=== PATIENT | male | born 1950 | race Hispanic/Latino ===

== ENCOUNTER 2024-05-24 06:47 | Inpatient (IN) | payer OTHER ==
[2024-05-22 10:18] VITALS: BP 118/73; PULSE 66; RESP 18; TEMP 97.8
[2024-05-22 10:18] LABS: BASOPHILS # (AUTO) 0.03 K/uL (0.00-0.20); BASOPHILS % (AUTO) 0.4 % (0.0-5.0); EOSINOPHILS # (AUTO) 0.15 K/uL (0.00-0.70); EOSINOPHILS % (AUTO) 2.2 % (0.0-8.0); HEMATOCRIT 44.3 % (42-54); IMMATURE GRANULOCYTE ABSOLUTE 0.04 K/uL (0-1); LYMPHOCYTES # (AUTO) 1.7 K/uL (1.0-4.8); LYMPHOCYTES % (AUTO) 25.3 % (21.0-51.0); MEAN CORPUSCULAR HEMOGLOBIN 30.9 pg (27.0-33.0); MEAN CORPUSCULAR HGB CONC 33.4 g/dL (32.0-36.0); MEAN CORPUSCULAR VOLUME 92.5 fL (79-99); MONOCYTES # (AUTO) 0.5 K/uL (0.1-1.0); MONOCYTES % (AUTO) 7.1 % (3.0-13.0); NEUTROPHILS # (AUTO) 4.4 K/uL (1.8-7.7); NEUTROPHILS % (AUTO) 64.4 % (40.0-77.0); PLATELET COUNT (AUTO) 232 K/uL (130-400); RED BLOOD CELL COUNT(AUTO) 4.79 MIL/uL (4.50-6.20); RED CELL DISTRIBUTION WIDTH 12.8 % (11.0-15.5); WHITE BLOOD COUNT (AUTO) 6.9 K/uL (4.8-10.8)
[2024-05-22 10:20] LABS: APPEARANCE,URINE CLEAR (CLEAR); BILIRUBIN,URINE NEGATIVE (NEGATIVE); COLOR,URINE LIGHT-YELLOW (YELLOW); GLUCOSE, URINE (UA) NEGATIVE (NEGATIVE); KETONES,URINE NEGATIVE (NEGATIVE); LEUKOCYTE ESTERASE ,URINE 75 Leu/uL (NEGATIVE); NITRATE,URINE NEGATIVE (NEGATIVE); OCCULT BLOOD,URINE NEGATIVE (NEGATIVE); PROTEIN,URINE NEGATIVE (NEGATIVE); UROBILINOGEN,URINE 0.2 mg/dL (0.2-1.0)
[2024-05-22 10:28] LABS: ADD UA MICROSCOPIC YES
[2024-05-22 10:31] LABS: INR 1.01 (0.85-1.15); PROTHROMBIN TIME 10.9 SEC (9.6-11.6)
[2024-05-22 10:31] LABS: CREATININE 1.1 mg/dL (0.5-1.3); POTASSIUM 4.5 mmol/L (3.5-5.1)
[2024-05-22 10:32] LABS: PARTIAL THROMBOPLASTIN TIME 33.3 SEC (26.3-35.5)
[2024-05-22 10:35] LABS: MUCUS,URINE RARE LPF (None Seen)
[2024-05-22 11:00] LABS: B-TYPE NATRIURETIC PEPTIDE 142 pg/mL (0-100)
[~2024-05-24] VITALS: Ht 167.6 cm; Wt 90.4 kg
[2024-05-24] VITALS (16 sets, daily range): BP systolic 107–132; BP diastolic 63–88; PULSE 65–84; RESP 10–20; TEMP 97.1–98.6; O2SAT 96
[~2024-05-24 06:47] MED LIST: AEC81 PO; BISA-151 PO; LACTOBACILLUS ACIDOPHILUS PO; LISI20TA24 PO; METF-444 PO; RANO10005 PO; SEMA1PEN3 SQ
[2024-05-24] MEDS: 0.9%NACL 1000ML 1,000 ML IV ONE (08:19)
[2024-05-24] MEDS ORDERED: LIDOCAINE HCL 400MG/20ML VIAL ONE (08:47)
[2024-05-24] MEDS ORDERED: IOHEXOL 350 MG/ML 100ML INFUS..BTL IV ONE (08:47)
[2024-05-24] MEDS ORDERED: NITROGLYCERIN 50MG VIAL ONE (08:48)
[2024-05-24] MEDS ORDERED: HEParin-NS 1,000 UNIT/500 ML 1,000 ML IV ONE (08:48)
[2024-05-24] MEDS ORDERED: MIDAZOLAM HCL 1 MG/ML 2ML VIAL ONE (09:17)
[2024-05-24] MEDS ORDERED: FENTanyl CITRate PF 50 MCG/1 ML 2ML VIAL ONE (09:17)
[2024-05-24] MEDS ORDERED: BIVALIRUDIN 250 MG/VIAL IV ONE (09:20)
[2024-05-24] MEDS ORDERED: IOHEXOL-350 50ML VIAL IV ONE (10:17)
[2024-05-24] MEDS: 0.9%NACL 1000ML 1,000 ML IV SCH (11:00)
[2024-05-24] MEDS ORDERED: DEXTROSE 50%-WATER 50 ML DISP.SYRIN IV PRN ×2 (11:00→22:00)
[2024-05-24] MEDS ORDERED: GLUCAGON 1MG KIT 1 MG ML IM PRN ×2 (11:00→22:00)
[2024-05-24] MEDS ORDERED: NITROGLYCERIN 0.4 MG SL TAB SL PRN (11:00)
[2024-05-24] MEDS ORDERED: metoPROLOL tartRATE 1 MG/ML 5ML VIAL IV PRN (11:00)
[2024-05-24] MEDS ORDERED: furoSEMIDE 20MG VIAL IVP ONE (11:57)
[2024-05-24 13:27] LABS: ABG BASE EXCESS -0.1 mmol/L (-2.0-3.0); ABG HCO3 24.6 mmol/L (21.0-28.0); ABG OXYGEN SATURATION 94.8 % (94.0-98.0); ABG PCO2 40 mmHg (35-48); ABG PH 7.406 (7.350-7.450); DEVICE COMMENT RR DAY PT; PO2, ARTERIAL BG 73.1 mmHg (83.0-108.0); VENT MODE, BG RA (ROOM AIR)
[2024-05-24] MEDS: INSULIN humuLIN R 100 UNIT/ML 3ML SQ SCH (16:30)
[2024-05-24] MEDS ORDERED: ceFAZolin SODIUM 2 GM VIAL IVPB SCH (20:30)
[2024-05-24] MEDS ORDERED: POTASSIUM CHLORIDE 20MEQ/100ML 100 ML IV PRN (22:00)
[2024-05-24] MEDS ORDERED: ONDANSETRON 4MG INJ IVP PRN (22:00)
[2024-05-24] MEDS ORDERED: MAGNESIUM 2GM PREMIX 50ML 50 ML IV PRN (22:00)
[2024-05-24] MEDS ORDERED: acetaMINOPHEN 650 MG SUPPOSITORY RC PRN (22:00)
[2024-05-24] MEDS ORDERED: acetaMINOPHEN 325 MG TAB PO PRN (22:00)
[2024-05-24] MEDS ORDERED: doCUSate SODIUM 100 MG CAP PO PRN (22:00)
[2024-05-24] MEDS ORDERED: hydrALAZine 20MG/ML VIAL IV PRN (22:00)
[2024-05-24 23:12] LABS: SARS-CoV-2, RNA, NAAT NEGATIVE SARS CoV-2 (NEGATIVE)
[2024-05-25] VITALS (28 sets, daily range): BP systolic 111–182; BP diastolic 44–120; PULSE 61–124; RESP 13–18; TEMP 97–98.5; O2SAT 96–100
[2024-05-25 00:01] LABS: INFLUENZA TYPE A Negative For Type A (NEGATIVE); INFLUENZA TYPE B Negative For Type B (NEGATIVE)
[2024-05-25 03:33] LABS: HEMATOCRIT 42.1 % (42-54); MEAN CORPUSCULAR HEMOGLOBIN 31.2 pg (27.0-33.0); MEAN CORPUSCULAR HGB CONC 33.7 g/dL (32.0-36.0); MEAN CORPUSCULAR VOLUME 92.5 fL (79-99); RED BLOOD CELL COUNT(AUTO) 4.55 MIL/uL (4.50-6.20); RED CELL DISTRIBUTION WIDTH 13.1 % (11.0-15.5); WHITE BLOOD COUNT (AUTO) 7.5 K/uL (4.8-10.8)
[2024-05-25 03:43] LABS: CREATININE 1.4 mg/dL (0.5-1.3); POTASSIUM 3.8 mmol/L (3.5-5.1)
[2024-05-25 03:45] LABS: INR 0.99 (0.85-1.15); PROTHROMBIN TIME 10.7 SEC (9.6-11.6)
[2024-05-25 03:47] LABS: PARTIAL THROMBOPLASTIN TIME 29.9 SEC (26.3-35.5)
[2024-05-25 03:55] LABS: ALBUMIN 3.2 g/dL (3.5-5.0); BILIRUBIN,TOTAL 0.4 mg/dL (0.2-1.0); THYROID STIMULATING HORMONE 3.85 uIU/mL (0.36-3.74); TOTAL PROTEIN, SERUM 6.6 g/dL (6.0-8.3)
[2024-05-25 04:01] LABS: HEMOGLOBIN A1C 6.7 % (4.0-6.0)
[2024-05-25] MEDS: POTASSIUM CHLORIDE 10MEQ/100ML 100 ML IV PRN (04:29)
[2024-05-25] MEDS: POTASSIUM CHLORIDE 10MEQ/100ML 100 ML IV ONE (04:29)
[2024-05-25] MEDS: metoPROLOL tartRATE 25 MG TAB PO ONE (08:27)
[2024-05-25] MEDS ORDERED: aminoCAProic ACID 5,000MG VIAL 15,000 MG in 0.9% NACL 500ML IV.SOLN 420 ML IV PRN (08:30)
[2024-05-25] MEDS ORDERED: EPINEPHrine PF 1MG (1:1,000) 10 MG in 0.9% NACL 250ML 240 ML IV PRN (08:30)
[2024-05-25] MEDS: LACTATED RINGERS 1000ML 1,000 ML IV SCH (10:10)
[2024-05-25] MEDS ORDERED: NITROGLYCERIN 50MG/D5W 250ML 1 BOT ONE (11:38)
[2024-05-25] MEDS ORDERED: LIDOCAINE 2G/250ML 250 ML IV ONE (11:39)
[2024-05-25] MEDS ORDERED: HEParin-NS 1,000 UNIT/500 ML 500 ML IV ONE (12:23)
[2024-05-25] MEDS ORDERED: ceFAZolin SODIUM 1 GM VIAL ONE (12:23)
[2024-05-25] MEDS ORDERED: PAPAVERINE HCL 30 MG/ML 2ML VIAL ONE (12:24)
[2024-05-25] MEDS ORDERED: proPOFol 10 MG/ML 20ML VIAL IV ONE (12:31)
[2024-05-25] MEDS ORDERED: SODIUM BICARB 50MEQ 50ML VIAL 200 ML ONE (12:31)
[2024-05-25] MEDS ORDERED: LIDOCAINE PF 100MG/5ML (2%) SYRINGE 5ML ONE ×2 (12:31→13:47)
[2024-05-25] MEDS ORDERED: FENTanyl CITRate PF 50 MCG/1 ML 20ML VIAL IJ ONE (12:31)
[2024-05-25] MEDS ORDERED: NOREPINEPHRINE BITARTRATE 1 MG/1 ML ML IV ONE (12:31)
[2024-05-25] MEDS ORDERED: EPINEPHrine PF 1MG (1:1,000) 1 MG/ML AMP ONE (12:31)
[2024-05-25] MEDS ORDERED: aminoCAProic ACID 5,000MG VIAL ONE (12:31)
[2024-05-25] MEDS ORDERED: PROTAMINE SULFATE 10 MG/ML 25ML VIAL IV ONE (12:31)
[2024-05-25] MEDS ORDERED: HEParin 10,000 UNIT/10ML (1,000 UNIT/ML) VIAL ONE (12:31)
[2024-05-25] MEDS ORDERED: MIDAZOLAM HCL 1 MG/ML 2ML VIAL ONE (12:32)
[2024-05-25] MEDS ORDERED: rocuRONium bROMide 10MG/1ML 5ML VL ONE (12:32)
[2024-05-25] MEDS: ceFAZolin SODIUM 2 GM VIAL IVPB ONE ×2 (12:50)
[2024-05-25 13:16] LABS: ABG BASE EXCESS -2.6 mmol/L (-2.0-3.0); ABG HCO3 21.9 mmol/L (21.0-28.0); ABG OXYGEN SATURATION 99.6 % (94.0-98.0); ABG PCO2 37 mmHg (35-48); ABG PH 7.385 (7.350-7.450); CARBON MONOXIDE 0.3 % (0.5-1.5); DEVICE COMMENT 1; HHb 0.4; PO2, ARTERIAL BG 330.5 mmHg (83.0-108.0)
[2024-05-25] MEDS ORDERED: VASOpressin 20 UNITS/ML 1ML VIAL ONE (13:28)
[2024-05-25] MEDS ORDERED: AMIOdarone 150MG VIAL ONE ×2 (13:28→16:07)
[2024-05-25] MEDS ORDERED: 0.9%NACL 10ML VIAL IVP PRN (14:00)
[2024-05-25] MEDS ORDERED: acetaMINOPHEN 650 MG SUPPOSITORY RC PRN (14:00)
[2024-05-25] MEDS ORDERED: GLUCAGON 1MG KIT 1 MG ML IM PRN (14:00)
[2024-05-25] MEDS ORDERED: MAGNESIUM HYDROXIDE 30 ML/UDCUP PO PRN (14:00)
[2024-05-25] MEDS ORDERED: proPOFol 1000 MG/100 ML 100 ML IV PRN (14:00)
[2024-05-25] MEDS ORDERED: DEXTROSE 50%-WATER 50 ML DISP.SYRIN IV PRN (14:00)
[2024-05-25] MEDS ORDERED: LACTULOSE 20 GM/30 ML UDCUP PO PRN (14:00)
[2024-05-25] MEDS ORDERED: aminoCAProic ACID 5,000MG VIAL 15,000 MG in 0.9% NACL 250ML 250 ML IV SCH (14:00)
[2024-05-25] MEDS ORDERED: NOREPINEPHRINE BITARTRATE 8 MG in DEXTROSE 5%-WATER 250 ML IV PRN (14:00)
[2024-05-25] MEDS ORDERED: NITROGLYCERIN 50MG/D5W 250ML 250 BOT IV SCH (14:00)
[2024-05-25] MEDS ORDERED: morPHINE 2 MG SYG IV PRN ×2 (14:00)
[2024-05-25] MEDS ORDERED: SODIUM BICARB 50MEQ 50ML VIAL IV PRN (14:00)
[2024-05-25] MEDS ORDERED: traMADol HCL 50 MG TABLET PO PRN (14:00)
[2024-05-25] MEDS ORDERED: dexmedeTOMIDine 400MCG/NS100ML IV SCH (14:00)
[2024-05-25] MEDS ORDERED: 0.9% NACL 500ML IV.SOLN 500 ML IV SCH (14:00)
[2024-05-25] MEDS ORDERED: ALBUMIN (HUMAN) 5% 250 ML IV PRN (14:00)
[2024-05-25] MEDS ORDERED: acetaMINOPHEN 325 MG TAB PO PRN (14:00)
[2024-05-25 14:11] LABS: ABG HCO3 23.7 mmol/L (21.0-28.0); ABG OXYGEN SATURATION 99.4 % (94.0-98.0); ABG PCO2 40 mmHg (35-48); ABG PH 7.393 (7.350-7.450); CARBON MONOXIDE 0 % (0.5-1.5); DEVICE COMMENT 2; HHb 0.6; PO2, ARTERIAL BG 368.5 mmHg (83.0-108.0)
[2024-05-25] MEDS ORDERED: COMPOUND IV MISC 1 EACH IVSOLN MISC PRN (14:30)
[2024-05-25] MEDS ORDERED: COMPOUND IV REFRIGERATED 1 EACH IVSOLN MISC PRN (14:30)
[2024-05-25 14:42] LABS: ABG OXYGEN SATURATION 98.8 % (94.0-98.0); ABG PCO2 39 mmHg (35-48); ABG PH 7.368 (7.350-7.450); CARBON MONOXIDE 0.1 % (0.5-1.5); DEVICE COMMENT 3; HHb 1.2; PO2, ARTERIAL BG 147.5 mmHg (83.0-108.0)
[2024-05-25 15:13] LABS: ABG BASE EXCESS 0.8 mmol/L (-2.0-3.0); ABG HCO3 25.2 mmol/L (21.0-28.0); ABG OXYGEN SATURATION 98.8 % (94.0-98.0); ABG PCO2 40 mmHg (35-48); ABG PH 7.422 (7.350-7.450); CARBON MONOXIDE 0 % (0.5-1.5); DEVICE COMMENT 4; HHb 1.2; PO2, ARTERIAL BG 146.9 mmHg (83.0-108.0); TEMPERATURE, CELSIUS BG 35.5 CELSIUS (35.5-37.0)
[2024-05-25 15:50] LABS: ABG BASE EXCESS -4.3 mmol/L (-2.0-3.0); ABG HCO3 21.6 mmol/L (21.0-28.0); ABG OXYGEN SATURATION 97.1 % (94.0-98.0); ABG PCO2 43 mmHg (35-48); CARBON MONOXIDE 0.3 % (0.5-1.5); DEVICE COMMENT 5; HHb 2.9; PO2, ARTERIAL BG 103.8 mmHg (83.0-108.0); TEMPERATURE, CELSIUS BG 35.2 CELSIUS (35.5-37.0)
[2024-05-25] MEDS ORDERED: ALBUTEROL INHALER 90MCG/INH IH ONE (15:54)
[2024-05-25] MEDS ORDERED: AMIOdarone 900MG VIAL 150 MG in DEXTROSE 5%-WATER 100 ML IV SCH (16:30)
[2024-05-25] MEDS ORDERED: AMIOdarone 900MG VIAL 360 MG in DEXTROSE 5%-WATER 200 ML IV SCH (16:30)
[2024-05-25] MEDS ORDERED: AMIOdarone 150MG VIAL 150 MG in DEXTROSE 5%-WATER 100 ML IV SCH (16:30)
[2024-05-25] MEDS: SODIUM BICARB 50MEQ 50ML VIAL 25 MEQ in DEXTROSE 5%-WATER 1,000 ML IV SCH (18:54)
[2024-05-25] MEDS: POTASSIUM CHLORIDE 20MEQ/100ML 100 ML IV PRN (18:55)
[2024-05-25 19:09] LABS: CREATININE 1.6 mg/dL (0.5-1.3); MAGNESIUM 1.5 mg/dL (1.80-2.40); PHOSPHORUS 3.7 mg/dL (2.5-4.9)
[2024-05-25 19:11] LABS: INR 1.23 (0.85-1.15); PROTHROMBIN TIME 13.1 SEC (9.6-11.6)
[2024-05-25 19:13] LABS: PARTIAL THROMBOPLASTIN TIME 27.1 SEC (26.3-35.5)
[2024-05-25 19:14] LABS: HEMATOCRIT 38.6 % (42-54); MEAN CORPUSCULAR HEMOGLOBIN 31.4 pg (27.0-33.0); MEAN CORPUSCULAR HGB CONC 33.2 g/dL (32.0-36.0); MEAN CORPUSCULAR VOLUME 94.8 fL (79-99); PLATELET COUNT (AUTO) 365 K/uL (130-400); RED BLOOD CELL COUNT(AUTO) 4.07 MIL/uL (4.50-6.20); RED CELL DISTRIBUTION WIDTH 13.1 % (11.0-15.5)
[2024-05-25 19:17] LABS: POTASSIUM 2.7 mmol/L (3.5-5.1)
[2024-05-25 19:20] LABS: WHITE BLOOD COUNT (AUTO) 34.5 K/uL (4.8-10.8)
[2024-05-25] MEDS: AMIODARONE 360MG/200ML D5W(1MG/MIN) IV SCH (19:23)
[2024-05-25] MEDS: 0.9%NACL 1000ML 1,000 ML IV SCH (19:24)
[2024-05-25] MEDS: ceFAZolin SODIUM 2 GM VIAL ONE (19:24)
[2024-05-25] MEDS: 0.9%NACL 1000ML 1,000 ML IV ONE (19:24)
[2024-05-25] MEDS: NOREPINEPHRIN 8MG/250ML NS 250 ML IV PRN (19:26)
[2024-05-25] MEDS: MAGNESIUM 2GM PREMIX 50ML 50 ML IV PRN (19:35)
[2024-05-25 20:02] LABS: BAND NEUTROPHILS % (MANUAL) 5 % (0-2); LYMPHOCYTES % (MANUAL) 18 % (22-44); MAN.DIFF COMMENT-IMPRESSION MANUAL DIFFERENTIAL; MONOCYTES % (MANUAL) 2 % (2-9); PLATELET MORPHOLOGY COMMENT ADEQUATE; SEGMENTED NEUTROPHILS % 75 % (40-70); TOTAL CELLS COUNTED 100; WBC MORPHOLOGY CONSISTENT W/DIFF
[2024-05-25] MEDS: NOREPINEPHRIN 8MG/250ML NS 250 ML IV ONE (20:14)
[2024-05-25] MEDS: atorVAStatin 40 MG TABLET PO SCH (20:16)
[2024-05-25] MEDS: FAMOTIDINE 20MG VIAL IV SCH (20:16)
[2024-05-25] MEDS: ASPIRIN 81MG CHEW TAB NG ONE (20:16)
[2024-05-25] MEDS: doCUSate SODIUM 100 MG CAP PO ONE (20:16)
[2024-05-25] MEDS: ceFAZolin SODIUM 2 GM VIAL IVPB SCH (20:16)
[2024-05-25] MEDS ORDERED: NOREPINEPHRIN 8MG/250ML NS 250 ML IV SCH (20:30)
[2024-05-25] MEDS: acetaMINOPHEN 1,000 MG/100 ML VIAL IV SCH (23:50)
[2024-05-26] VITALS (98 sets, daily range): BP systolic 90–184; BP diastolic 48–110; PULSE 77–118; RESP 9–47; TEMP 97.9–102.1; O2SAT 93–99
[2024-05-26] MEDS: AMIODARONE 540 MG/D5W 300ML (0.5MG/MIN) IV SCH (00:44)
[2024-05-26] MEDS: INSULIN REGULAR, HUMAN 3ML 100 UNIT in 0.9%NACL 100ML 99 ML IV SCH (00:55)
[2024-05-26 03:57] LABS: ABG BASE EXCESS 1.1 mmol/L (-2.0-3.0); ABG HCO3 24.6 mmol/L (21.0-28.0); ABG OXYGEN SATURATION 97.9 % (94.0-98.0); ABG PCO2 36 mmHg (35-48); ABG PH 7.458 (7.350-7.450); CARBON MONOXIDE 0.5 % (0.5-1.5); DEVICE COMMENT ALINE; HHb 2.1; PO2, ARTERIAL BG 113.1 mmHg (83.0-108.0); VENT MODE, BG SIMVPS10 (ROOM AIR)
[2024-05-26 03:57] LABS: ABG BASE EXCESS 1.6 mmol/L (-2.0-3.0); ABG HCO3 25.4 mmol/L (21.0-28.0); ABG OXYGEN SATURATION 98.1 % (94.0-98.0); ABG PCO2 37 mmHg (35-48); ABG PH 7.454 (7.350-7.450); CARBON MONOXIDE 0.8 % (0.5-1.5); HHb 1.9; PO2, ARTERIAL BG 124.1 mmHg (83.0-108.0); VENT MODE, BG SIMV, PS10 (ROOM AIR)
[2024-05-26 03:58] LABS: ABG BASE EXCESS 3.4 mmol/L (-2.0-3.0); ABG HCO3 27.2 mmol/L (21.0-28.0); ABG OXYGEN SATURATION 98.6 % (94.0-98.0); ABG PCO2 38 mmHg (35-48); ABG PH 7.469 (7.350-7.450); CARBON MONOXIDE 0.3 % (0.5-1.5); DEVICE COMMENT 5; HHb 1.4; TEMPERATURE, CELSIUS BG 35.2 CELSIUS (35.5-37.0)
[2024-05-26 03:58] LABS: ABG BASE EXCESS 0.6 mmol/L (-2.0-3.0); ABG HCO3 24.9 mmol/L (21.0-28.0); ABG OXYGEN SATURATION 96.9 % (94.0-98.0); ABG PCO2 39 mmHg (35-48); ABG PH 7.426 (7.350-7.450); CARBON MONOXIDE 0.7 % (0.5-1.5); HHb 3.1; PO2, ARTERIAL BG 94.2 mmHg (83.0-108.0); VENT MODE, BG SIMV,PS10 (ROOM AIR)
[2024-05-26 03:58] LABS: ABG BASE EXCESS 2.6 mmol/L (-2.0-3.0); ABG HCO3 27.7 mmol/L (21.0-28.0); ABG OXYGEN SATURATION 98.5 % (94.0-98.0); ABG PCO2 45 mmHg (35-48); ABG PH 7.412 (7.350-7.450); CARBON MONOXIDE 0.3 % (0.5-1.5); DEVICE COMMENT 9; HHb 1.5; PO2, ARTERIAL BG 147.1 mmHg (83.0-108.0); TEMPERATURE, CELSIUS BG 35.2 CELSIUS (35.5-37.0)
[2024-05-26 03:58] LABS: ABG BASE EXCESS -2.8 mmol/L (-2.0-3.0); ABG HCO3 21.5 mmol/L (21.0-28.0); ABG OXYGEN SATURATION 98.2 % (94.0-98.0); ABG PCO2 36 mmHg (35-48); ABG PH 7.392 (7.350-7.450); CARBON MONOXIDE 0.3 % (0.5-1.5); DEVICE COMMENT 8; HHb 1.8; TEMPERATURE, CELSIUS BG 35.2 CELSIUS (35.5-37.0)
[2024-05-26 03:58] LABS: ABG BASE EXCESS -4.3 mmol/L (-2.0-3.0); ABG HCO3 19.6 mmol/L (21.0-28.0); ABG OXYGEN SATURATION 98.4 % (94.0-98.0); ABG PCO2 33 mmHg (35-48); CARBON MONOXIDE 0.2 % (0.5-1.5); DEVICE COMMENT 8B; HHb 1.6; PO2, ARTERIAL BG 132.6 mmHg (83.0-108.0); TEMPERATURE, CELSIUS BG 35.1 CELSIUS (35.5-37.0)
[2024-05-26 03:58] LABS: ABG BASE EXCESS -3.6 mmol/L (-2.0-3.0); ABG HCO3 21.4 mmol/L (21.0-28.0); ABG OXYGEN SATURATION 91.2 % (94.0-98.0); ABG PCO2 39 mmHg (35-48); ABG PH 7.361 (7.350-7.450); CARBON MONOXIDE 0.1 % (0.5-1.5); DEVICE COMMENT 7; HHb 8.8; PO2, ARTERIAL BG 62.6 mmHg (83.0-108.0); TEMPERATURE, CELSIUS BG 35.1 CELSIUS (35.5-37.0)
[2024-05-26 03:58] LABS: ABG BASE EXCESS -0.9 mmol/L (-2.0-3.0); ABG HCO3 23.4 mmol/L (21.0-28.0); ABG OXYGEN SATURATION 97.9 % (94.0-98.0); ABG PCO2 38 mmHg (35-48); ABG PH 7.411 (7.350-7.450); CARBON MONOXIDE 0.6 % (0.5-1.5); HHb 2.1; PO2, ARTERIAL BG 123.2 mmHg (83.0-108.0); VENT MODE, BG SIMV,PS10 (ROOM AIR)
[2024-05-26 03:59] LABS: ABG OXYGEN SATURATION 98.2 % (94.0-98.0); ABG PCO2 42 mmHg (35-48); ABG PH 7.394 (7.350-7.450); CARBON MONOXIDE 0.4 % (0.5-1.5); HHb 1.8; PO2, ARTERIAL BG 141.2 mmHg (83.0-108.0); VENT MODE, BG SIMV,PS10 (ROOM AIR)
[2024-05-26 03:59] LABS: ABG BASE EXCESS 0.7 mmol/L (-2.0-3.0); ABG HCO3 24.9 mmol/L (21.0-28.0); ABG OXYGEN SATURATION 98.5 % (94.0-98.0); ABG PCO2 39 mmHg (35-48); ABG PH 7.428 (7.350-7.450); CARBON MONOXIDE 0.2 % (0.5-1.5); HHb 1.5; PO2, ARTERIAL BG 165.2 mmHg (83.0-108.0); VENT MODE, BG SIMV,PS10 (ROOM AIR)
[2024-05-26 03:59] LABS: ABG BASE EXCESS -1.4 mmol/L (-2.0-3.0); ABG HCO3 22.7 mmol/L (21.0-28.0); ABG OXYGEN SATURATION 98.8 % (94.0-98.0); ABG PCO2 36 mmHg (35-48); ABG PH 7.414 (7.350-7.450); CARBON MONOXIDE 0.3 % (0.5-1.5); HHb 1.2; VENT MODE, BG SIMV, PS10 (ROOM AIR)
[2024-05-26 03:59] LABS: ABG BASE EXCESS -2.6 mmol/L (-2.0-3.0); ABG HCO3 21.5 mmol/L (21.0-28.0); ABG OXYGEN SATURATION 98.8 % (94.0-98.0); ABG PCO2 36 mmHg (35-48); ABG PH 7.401 (7.350-7.450); CARBON MONOXIDE 0.3 % (0.5-1.5); HHb 1.2; PO2, ARTERIAL BG 203.6 mmHg (83.0-108.0); VENT MODE, BG SIMV,PS10 (ROOM AIR)
[2024-05-26 03:59] LABS: ABG HCO3 23.1 mmol/L (21.0-28.0); ABG OXYGEN SATURATION 95.5 % (94.0-98.0); ABG PCO2 51 mmHg (35-48); ABG PH 7.278 (7.350-7.450); CARBON MONOXIDE 0.5 % (0.5-1.5); DEVICE COMMENT ALINE; HHb 4.5; PO2, ARTERIAL BG 91.9 mmHg (83.0-108.0); VENT MODE, BG SIMV,PS10 (ROOM AIR)
[2024-05-26 04:07] LABS: ABG BASE EXCESS 1.6 mmol/L (-2.0-3.0); ABG HCO3 25.5 mmol/L (21.0-28.0); ABG OXYGEN SATURATION 96.7 % (94.0-98.0); ABG PCO2 37 mmHg (35-48); ABG PH 7.451 (7.350-7.450); CARBON MONOXIDE 0.7 % (0.5-1.5); HHb 3.3; PO2, ARTERIAL BG 90.9 mmHg (83.0-108.0); VENT MODE, BG CAFM .40 (ROOM AIR)
[2024-05-26] MEDS: EPINEPHrine PF 1MG (1:1,000) 10 MG in 0.9% NACL 250ML 240 ML IV PRN (05:54)
[2024-05-26 06:30] LABS: BASOPHILS # (AUTO) 0.02 K/uL (0.00-0.20); BASOPHILS % (AUTO) 0.1 % (0.0-5.0); EOSINOPHILS # (AUTO) 0.02 K/uL (0.00-0.70); EOSINOPHILS % (AUTO) 0.1 % (0.0-8.0); HEMATOCRIT 34.3 % (42-54); IMMATURE GRANULOCYTE ABSOLUTE 0.12 K/uL (0-1); LYMPHOCYTES # (AUTO) 0.7 K/uL (1.0-4.8); LYMPHOCYTES % (AUTO) 3.4 % (21.0-51.0); MEAN CORPUSCULAR HEMOGLOBIN 31.8 pg (27.0-33.0); MEAN CORPUSCULAR HGB CONC 34.4 g/dL (32.0-36.0); MEAN CORPUSCULAR VOLUME 92.5 fL (79-99); MONOCYTES # (AUTO) 2.7 K/uL (0.1-1.0); MONOCYTES % (AUTO) 12.4 % (3.0-13.0); NEUTROPHILS # (AUTO) 18.4 K/uL (1.8-7.7); NEUTROPHILS % (AUTO) 83.5 % (40.0-77.0); PLATELET COUNT (AUTO) 288 K/uL (130-400); RED BLOOD CELL COUNT(AUTO) 3.71 MIL/uL (4.50-6.20); RED CELL DISTRIBUTION WIDTH 13.4 % (11.0-15.5)
[2024-05-26 06:38] LABS: INR 1.11 (0.85-1.15); PROTHROMBIN TIME 11.9 SEC (9.6-11.6)
[2024-05-26 06:40] LABS: PARTIAL THROMBOPLASTIN TIME 26.8 SEC (26.3-35.5)
[2024-05-26 06:49] LABS: CREATININE 2.1 mg/dL (0.5-1.3); MAGNESIUM 1.8 mg/dL (1.80-2.40); POTASSIUM 4.3 mmol/L (3.5-5.1)
[2024-05-26 07:07] LABS: PHOSPHORUS 0.9 mg/dL (2.5-4.9)
[2024-05-26] MEDS: ASPIRIN 81 MG EC TAB PO SCH (07:49)
[2024-05-26] MEDS: furoSEMIDE 20MG VIAL IV SCH (07:49)
[2024-05-26] MEDS: POTASSIUM PHOS 15 mMOL+NS250ML 250 ML IV PRN (07:50)
[2024-05-26 07:56] LABS: ABG BASE EXCESS 4.9 mmol/L (-2.0-3.0); ABG HCO3 29.3 mmol/L (21.0-28.0); ABG OXYGEN SATURATION 96.5 % (94.0-98.0); ABG PCO2 43 mmHg (35-48); ABG PH 7.453 (7.350-7.450); CARBON MONOXIDE 0.5 % (0.5-1.5); HHb 3.5; PO2, ARTERIAL BG 83.4 mmHg (83.0-108.0); VENT MODE, BG CAFM (ROOM AIR)
[2024-05-26] MEDS: traMADol HCL 50 MG TABLET PO PRN (09:00)
[2024-05-26] MEDS: ONDANSETRON 4MG INJ IV PRN (09:56)
[2024-05-26 17:40] LABS: ALBUMIN 2.6 g/dL (3.5-5.0); CREATININE 1.8 mg/dL (0.5-1.3); POTASSIUM 4.2 mmol/L (3.5-5.1); TOTAL PROTEIN, SERUM 5.5 g/dL (6.0-8.3)
[2024-05-26] MEDS: AMIOdarone 200 MG TABLET PO SCH (20:11)
[2024-05-26] MEDS: acetaMINOPHEN 325 MG TAB PO PRN (20:43)
[2024-05-27] VITALS (88 sets, daily range): BP systolic 94–161; BP diastolic 53–97; PULSE 17–141; RESP 7–27; TEMP 98–98.7; O2SAT 94–98
[2024-05-27 04:58] LABS: BASOPHILS # (AUTO) 0.07 K/uL (0.00-0.20); BASOPHILS % (AUTO) 0.2 % (0.0-5.0); EOSINOPHILS # (AUTO) 0.07 K/uL (0.00-0.70); EOSINOPHILS % (AUTO) 0.2 % (0.0-8.0); HEMATOCRIT 31.4 % (42-54); LYMPHOCYTES # (AUTO) 1.8 K/uL (1.0-4.8); LYMPHOCYTES % (AUTO) 5.6 % (21.0-51.0); MEAN CORPUSCULAR HEMOGLOBIN 31.2 pg (27.0-33.0); MEAN CORPUSCULAR HGB CONC 33.1 g/dL (32.0-36.0); MEAN CORPUSCULAR VOLUME 94.3 fL (79-99); MONOCYTES % (AUTO) 6.4 % (3.0-13.0); NEUTROPHILS # (AUTO) 27.5 K/uL (1.8-7.7); NEUTROPHILS % (AUTO) 86.3 % (40.0-77.0); NUCLEATED RED BLOOD CELLS 0.2 % (0.0-0.19); PLATELET COUNT (AUTO) 156 K/uL (130-400); RED BLOOD CELL COUNT(AUTO) 3.33 MIL/uL (4.50-6.20); RED CELL DISTRIBUTION WIDTH 14.3 % (11.0-15.5)
[2024-05-27 05:04] LABS: INR 1.08 (0.85-1.15); PROTHROMBIN TIME 11.6 SEC (9.6-11.6)
[2024-05-27 05:13] LABS: WHITE BLOOD COUNT (AUTO) 31.9 K/uL (4.8-10.8)
[2024-05-27 05:18] LABS: ALBUMIN 2.5 g/dL (3.5-5.0); BILIRUBIN,TOTAL 0.9 mg/dL (0.2-1.0); CREATININE 1.4 mg/dL (0.5-1.3); MAGNESIUM 2.1 mg/dL (1.80-2.40); POTASSIUM 3.8 mmol/L (3.5-5.1); TOTAL PROTEIN, SERUM 5.6 g/dL (6.0-8.3)
[2024-05-27] MEDS: INSULIN humuLIN R 100 UNIT/ML 3ML SQ SCH (06:28)
[2024-05-27] MEDS: furoSEMIDE 20 MG TABLET PO SCH (07:50)
[2024-05-27 08:51] LABS: ABG BASE EXCESS 1.1 mmol/L (-2.0-3.0); ABG HCO3 24.6 mmol/L (21.0-28.0); ABG OXYGEN SATURATION 97.8 % (94.0-98.0); ABG PCO2 35 mmHg (35-48); ABG PH 7.461 (7.350-7.450); CARBON MONOXIDE 0.1 % (0.5-1.5); HHb 2.2; PO2, ARTERIAL BG 109.6 mmHg (83.0-108.0); VENT MODE, BG OXYMIZER NC (ROOM AIR)
[2024-05-27] MEDS: CALCIUM GLUC 1GM 1 GM in 0.9%NACL 50ML 50 ML IV PRN (09:00)
[2024-05-27] MEDS: furoSEMIDE 20MG VIAL IV SCH (10:26)
[2024-05-27] MEDS ORDERED: LACTULOSE 20 GM/30 ML UDCUP PO PRN (10:30)
[2024-05-27] MEDS: doCUSate SODIUM 100 MG CAP PO SCH (10:30)
[2024-05-27] MEDS: polyETHYLene GLYCol 3350 17 GM POWD.PACK PO SCH (10:33)
[2024-05-27] MEDS: BisaCODYL 10 MG SUPP.RECT RC PRN (11:29)
[2024-05-27] MEDS: ceFEPime HCL 2 GM VIAL IVPB SCH (11:37)
[2024-05-27 12:08] LABS: ABG BASE EXCESS -1.2 mmol/L (-2.0-3.0); ABG HCO3 22.7 mmol/L (21.0-28.0); ABG PCO2 35 mmHg (35-48); ABG PH 7.429 (7.350-7.450); CARBON MONOXIDE 0.3 % (0.5-1.5); DEVICE COMMENT RN ARACELI; PO2, ARTERIAL BG 99.8 mmHg (83.0-108.0); VENT MODE, BG NRB (ROOM AIR)
[2024-05-27] MEDS: metRONIDazole 500MG/100ML BAG IV SCH (12:33)
[2024-05-27] MEDS: metoCLOPRAmide 10 MG/2 ML VIAL IVP SCH (13:04)
[2024-05-27 13:42] LABS: APPEARANCE,URINE CLEAR (CLEAR); BILIRUBIN,URINE NEGATIVE (NEGATIVE); COLOR,URINE LIGHT-YELLOW (YELLOW); GLUCOSE, URINE (UA) 500 mg/dL (NEGATIVE); KETONES,URINE 40 mg/dL (NEGATIVE); LEUKOCYTE ESTERASE ,URINE NEGATIVE Leu/uL (NEGATIVE); NITRATE,URINE NEGATIVE (NEGATIVE); OCCULT BLOOD,URINE MODERATE (NEGATIVE); PH,URINE 5.5 (5.0-8.0); PROTEIN,URINE 10 mg/dL (NEGATIVE); UROBILINOGEN,URINE 0.2 mg/dL (0.2-1.0)
[2024-05-27 13:44] LABS: ADD UA MICROSCOPIC YES
[2024-05-27 13:55] LABS: BACTERIA,URINE RARE /HPF (None Seen); MUCUS,URINE RARE LPF (None Seen); RBC,URINE 26-50 /HPF (0-1)
[2024-05-27] MEDS: PANTOPRAZOLE 40 MG/VIAL IVP SCH (14:12)
[2024-05-27 17:18] LABS: ABG BASE EXCESS 2.2 mmol/L (-2.0-3.0); ABG HCO3 26.1 mmol/L (21.0-28.0); ABG OXYGEN SATURATION 96.8 % (94.0-98.0); ABG PCO2 38 mmHg (35-48); ABG PH 7.453 (7.350-7.450); CARBON MONOXIDE 0.1 % (0.5-1.5); DEVICE COMMENT RN ARACELI; HHb 3.2; PO2, ARTERIAL BG 94.8 mmHg (83.0-108.0); VENT MODE, BG HFNC (ROOM AIR)
[2024-05-27 17:29] LABS: HEMATOCRIT 30.3 % (42-54)
[2024-05-27 17:44] LABS: ALBUMIN 2.4 g/dL (3.5-5.0); BILIRUBIN,TOTAL 0.9 mg/dL (0.2-1.0); CREATININE 1.4 mg/dL (0.5-1.3); POTASSIUM 4.1 mmol/L (3.5-5.1); TOTAL PROTEIN, SERUM 5.6 g/dL (6.0-8.3)
[2024-05-27] MEDS: AMIOdarone 900MG VIAL 150 MG in DEXTROSE 5%-WATER 100 ML IV SCH (19:18)
[2024-05-27] MEDS: AMIOdarone 900MG VIAL 360 MG in DEXTROSE 5%-WATER 200 ML IV SCH (19:27)
[2024-05-27 23:38] LABS: ABG BASE EXCESS 2.9 mmol/L (-2.0-3.0); ABG OXYGEN SATURATION 95.1 % (94.0-98.0); ABG PCO2 39 mmHg (35-48); ABG PH 7.454 (7.350-7.450); CARBON MONOXIDE 0.3 % (0.5-1.5); HHb 4.9; PO2, ARTERIAL BG 80.1 mmHg (83.0-108.0); VENT MODE, BG HFNC (ROOM AIR)
[2024-05-28] VITALS (101 sets, daily range): BP systolic 100–278; BP diastolic 45–98; PULSE 74–126; RESP 10–38; TEMP 98.1–99; O2SAT 96–99
[2024-05-28] MEDS: AMIOdarone 900MG VIAL 540 MG in DEXTROSE 5%-WATER 300 ML IV SCH (01:26)
[2024-05-28 04:42] LABS: ABG BASE EXCESS 2.7 mmol/L (-2.0-3.0); ABG HCO3 26.6 mmol/L (21.0-28.0); ABG OXYGEN SATURATION 97.4 % (94.0-98.0); ABG PCO2 38 mmHg (35-48); ABG PH 7.463 (7.350-7.450); CARBON MONOXIDE 0.3 % (0.5-1.5); HHb 2.6; PO2, ARTERIAL BG 102.6 mmHg (83.0-108.0); VENT MODE, BG HFNC (ROOM AIR)
[2024-05-28 05:02] LABS: BASOPHILS # (AUTO) 0.04 K/uL (0.00-0.20); BASOPHILS % (AUTO) 0.2 % (0.0-5.0); EOSINOPHILS # (AUTO) 0.12 K/uL (0.00-0.70); EOSINOPHILS % (AUTO) 0.5 % (0.0-8.0); HEMATOCRIT 29.5 % (42-54); IMMATURE GRANULOCYTE ABSOLUTE 0.76 K/uL (0-1); LYMPHOCYTES # (AUTO) 1.5 K/uL (1.0-4.8); LYMPHOCYTES % (AUTO) 6.2 % (21.0-51.0); MEAN CORPUSCULAR HEMOGLOBIN 31.6 pg (27.0-33.0); MEAN CORPUSCULAR HGB CONC 32.2 g/dL (32.0-36.0); MONOCYTES % (AUTO) 4.3 % (3.0-13.0); NEUTROPHILS # (AUTO) 20.1 K/uL (1.8-7.7); NEUTROPHILS % (AUTO) 85.6 % (40.0-77.0); NUCLEATED RED BLOOD CELLS 0.6 % (0.0-0.19); PLATELET COUNT (AUTO) 114 K/uL (130-400); RED BLOOD CELL COUNT(AUTO) 3.01 MIL/uL (4.50-6.20); RED CELL DISTRIBUTION WIDTH 14.4 % (11.0-15.5); WHITE BLOOD COUNT (AUTO) 23.5 K/uL (4.8-10.8)
[2024-05-28 05:10] LABS: ALBUMIN 2.3 g/dL (3.5-5.0); BILIRUBIN,TOTAL 0.8 mg/dL (0.2-1.0); CREATININE 1.1 mg/dL (0.5-1.3); POTASSIUM 4.1 mmol/L (3.5-5.1); TOTAL PROTEIN, SERUM 5.3 g/dL (6.0-8.3)
[2024-05-28 06:57] LABS: PHOSPHORUS 3.2 mg/dL (2.5-4.9)
[2024-05-28 10:35] LABS: INR 1.06 (0.85-1.15); PROTHROMBIN TIME 11.4 SEC (9.6-11.6)
[2024-05-28] MEDS: IpraTROPium 0.5 MG/2.5 ML INH IH SCH (11:18)
[2024-05-28 16:30] LABS: ALBUMIN 2.4 g/dL (3.5-5.0); BILIRUBIN,TOTAL 0.7 mg/dL (0.2-1.0); CREATININE 1.1 mg/dL (0.5-1.3); POTASSIUM 3.9 mmol/L (3.5-5.1); TOTAL PROTEIN, SERUM 5.3 g/dL (6.0-8.3)
[2024-05-29] VITALS (105 sets, daily range): BP systolic 68–142; BP diastolic 47–72; PULSE 72–119; RESP 11–36; TEMP 97.9–99.3; O2SAT 96–98
[2024-05-29 03:58] LABS: HEMATOCRIT 25.9 % (42-54); MEAN CORPUSCULAR HEMOGLOBIN 31.9 pg (27.0-33.0); MEAN CORPUSCULAR HGB CONC 32.4 g/dL (32.0-36.0); MEAN CORPUSCULAR VOLUME 98.5 fL (79-99); RED BLOOD CELL COUNT(AUTO) 2.63 MIL/uL (4.50-6.20); RED CELL DISTRIBUTION WIDTH 14.1 % (11.0-15.5); WHITE BLOOD COUNT (AUTO) 19.1 K/uL (4.8-10.8)
[2024-05-29 04:03] LABS: INR 1.06 (0.85-1.15); PROTHROMBIN TIME 11.4 SEC (9.6-11.6)
[2024-05-29 04:07] LABS: ALBUMIN 2.2 g/dL (3.5-5.0); BILIRUBIN,TOTAL 0.7 mg/dL (0.2-1.0); MAGNESIUM 2.1 mg/dL (1.80-2.40); POTASSIUM 4.1 mmol/L (3.5-5.1); TOTAL PROTEIN, SERUM 5.2 g/dL (6.0-8.3)
[2024-05-29] MEDS: INSULIN humuLIN R 100 UNIT/ML 3ML SQ SCH (11:18)
[2024-05-29 17:39] LABS: ALBUMIN 2.2 g/dL (3.5-5.0); BILIRUBIN,TOTAL 0.7 mg/dL (0.2-1.0); POTASSIUM 4.2 mmol/L (3.5-5.1); TOTAL PROTEIN, SERUM 5.1 g/dL (6.0-8.3)
[2024-05-29] MEDS: dilTIAZem 125 MG/25 ML INJ 125 MG in 0.9%NACL 100ML 100 ML IV SCH (19:34)
[2024-05-30] VITALS (86 sets, daily range): BP systolic 83–158; BP diastolic 37–81; PULSE 66–123; RESP 10–26; TEMP 98.4–99.1; O2SAT 95–99
[2024-05-30 03:45] LABS: HEMATOCRIT 27.1 % (42-54); MEAN CORPUSCULAR HEMOGLOBIN 31.8 pg (27.0-33.0); MEAN CORPUSCULAR HGB CONC 32.5 g/dL (32.0-36.0); MEAN CORPUSCULAR VOLUME 97.8 fL (79-99); NUCLEATED RED BLOOD CELLS 1.3 % (0.0-0.19); RED BLOOD CELL COUNT(AUTO) 2.77 MIL/uL (4.50-6.20); RED CELL DISTRIBUTION WIDTH 13.7 % (11.0-15.5); WHITE BLOOD COUNT (AUTO) 20.4 K/uL (4.8-10.8)
[2024-05-30 03:53] LABS: POTASSIUM 3.9 mmol/L (3.5-5.1)
[2024-05-30] MEDS ORDERED: metoPROLOL tartRATE 1 MG/ML 5ML VIAL IV PRN (08:00)
[2024-05-30] MEDS: miDODRine HCL 5 MG TABLET PO SCH (14:14)
[2024-05-31] VITALS (110 sets, daily range): BP systolic 0–169; BP diastolic 0–130; PULSE 68–123; RESP 7–27; TEMP 98.5–99.2; O2SAT 96–98
[2024-05-31 05:30] LABS: CREATININE 0.8 mg/dL (0.5-1.3); POTASSIUM 3.9 mmol/L (3.5-5.1)
[2024-05-31 09:50] LABS: BASOPHILS # (AUTO) 0.05 K/uL (0.00-0.20); BASOPHILS % (AUTO) 0.3 % (0.0-5.0); EOSINOPHILS # (AUTO) 0.18 K/uL (0.00-0.70); EOSINOPHILS % (AUTO) 1.2 % (0.0-8.0); HEMATOCRIT 30.3 % (42-54); LYMPHOCYTES # (AUTO) 1.9 K/uL (1.0-4.8); LYMPHOCYTES % (AUTO) 12.9 % (21.0-51.0); MEAN CORPUSCULAR HGB CONC 32.7 g/dL (32.0-36.0); MEAN CORPUSCULAR VOLUME 98.1 fL (79-99); MONOCYTES # (AUTO) 0.9 K/uL (0.1-1.0); MONOCYTES % (AUTO) 5.8 % (3.0-13.0); NEUTROPHILS # (AUTO) 11.4 K/uL (1.8-7.7); NEUTROPHILS % (AUTO) 77.1 % (40.0-77.0); PLATELET COUNT (AUTO) 110 K/uL (130-400); RED BLOOD CELL COUNT(AUTO) 3.09 MIL/uL (4.50-6.20); RED CELL DISTRIBUTION WIDTH 13.8 % (11.0-15.5); WHITE BLOOD COUNT (AUTO) 14.8 K/uL (4.8-10.8)
[2024-05-31] MEDS: miDODRine HCL 5 MG TABLET PO SCH (11:27)
[2024-05-31] MEDS: furoSEMIDE 20MG VIAL IV SCH (23:57)
[2024-06-01] VITALS (37 sets, daily range): BP systolic 87–128; BP diastolic 47–68; PULSE 61–110; RESP 12–26; TEMP 97.9–98.6; O2SAT 95–98
[2024-06-01 05:19] LABS: BASOPHILS # (AUTO) 0.04 K/uL (0.00-0.20); BASOPHILS % (AUTO) 0.4 % (0.0-5.0); EOSINOPHILS # (AUTO) 0.23 K/uL (0.00-0.70); IMMATURE GRANULOCYTE ABSOLUTE 0.61 K/uL (0-1); LYMPHOCYTES # (AUTO) 1.8 K/uL (1.0-4.8); LYMPHOCYTES % (AUTO) 16.1 % (21.0-51.0); MEAN CORPUSCULAR HEMOGLOBIN 31.3 pg (27.0-33.0); MEAN CORPUSCULAR HGB CONC 32.8 g/dL (32.0-36.0); MEAN CORPUSCULAR VOLUME 95.4 fL (79-99); MONOCYTES % (AUTO) 8.9 % (3.0-13.0); NEUTROPHILS # (AUTO) 7.6 K/uL (1.8-7.7); NEUTROPHILS % (AUTO) 67.2 % (40.0-77.0); NUCLEATED RED BLOOD CELLS 1.3 % (0.0-0.19); PLATELET COUNT (AUTO) 132 K/uL (130-400); RED BLOOD CELL COUNT(AUTO) 3.04 MIL/uL (4.50-6.20); RED CELL DISTRIBUTION WIDTH 14.3 % (11.0-15.5); WHITE BLOOD COUNT (AUTO) 11.3 K/uL (4.8-10.8)
[2024-06-01 05:52] LABS: MAGNESIUM 1.8 mg/dL (1.80-2.40); POTASSIUM 3.5 mmol/L (3.5-5.1)
[2024-06-01] MEDS: POTASSIUM CHLORIDE 10% ELIXIR 20 MEQ/15 ML UDCUP PO PRN (08:37)
[2024-06-01] MEDS: KCL 20 MEQ ERTAB PO ONE (16:42)
[2024-06-02] VITALS (14 sets, daily range): BP systolic 94–108; BP diastolic 44–75; PULSE 55–85; RESP 18; TEMP 98.2–98.8; O2SAT 96–98
[2024-06-02 03:39] LABS: BASOPHILS # (AUTO) 0.04 K/uL (0.00-0.20); BASOPHILS % (AUTO) 0.3 % (0.0-5.0); EOSINOPHILS # (AUTO) 0.32 K/uL (0.00-0.70); EOSINOPHILS % (AUTO) 2.7 % (0.0-8.0); HEMATOCRIT 28.3 % (42-54); IMMATURE GRANULOCYTE ABSOLUTE 0.57 K/uL (0-1); LYMPHOCYTES # (AUTO) 1.9 K/uL (1.0-4.8); LYMPHOCYTES % (AUTO) 16.3 % (21.0-51.0); MEAN CORPUSCULAR HEMOGLOBIN 31.2 pg (27.0-33.0); MEAN CORPUSCULAR HGB CONC 33.2 g/dL (32.0-36.0); MONOCYTES % (AUTO) 8.9 % (3.0-13.0); NEUTROPHILS # (AUTO) 7.9 K/uL (1.8-7.7); NEUTROPHILS % (AUTO) 66.9 % (40.0-77.0); NUCLEATED RED BLOOD CELLS 0.6 % (0.0-0.19); PLATELET COUNT (AUTO) 151 K/uL (130-400); RED BLOOD CELL COUNT(AUTO) 3.01 MIL/uL (4.50-6.20); RED CELL DISTRIBUTION WIDTH 14.7 % (11.0-15.5); WHITE BLOOD COUNT (AUTO) 11.7 K/uL (4.8-10.8)
[2024-06-02 03:54] LABS: BILIRUBIN,TOTAL 0.7 mg/dL (0.2-1.0); CREATININE 1.1 mg/dL (0.5-1.3); MAGNESIUM 2.1 mg/dL (1.80-2.40); POTASSIUM 3.8 mmol/L (3.5-5.1); TOTAL PROTEIN, SERUM 5.1 g/dL (6.0-8.3)
[2024-06-02] MEDS: KCL 20 MEQ ERTAB PO PRN (05:11)
[2024-06-02] MEDS: furoSEMIDE 20 MG TABLET PO SCH (18:45)
[2024-06-03] VITALS (10 sets, daily range): BP systolic 100–127; BP diastolic 55–62; PULSE 59–82; RESP 18–20; TEMP 97.9–98.5; O2SAT 95–98
[2024-06-03 04:03] LABS: BASOPHILS # (AUTO) 0.03 K/uL (0.00-0.20); BASOPHILS % (AUTO) 0.2 % (0.0-5.0); EOSINOPHILS # (AUTO) 0.37 K/uL (0.00-0.70); EOSINOPHILS % (AUTO) 3.1 % (0.0-8.0); HEMATOCRIT 27.6 % (42-54); IMMATURE GRANULOCYTE ABSOLUTE 0.47 K/uL (0-1); LYMPHOCYTES # (AUTO) 1.8 K/uL (1.0-4.8); LYMPHOCYTES % (AUTO) 14.6 % (21.0-51.0); MEAN CORPUSCULAR HEMOGLOBIN 30.9 pg (27.0-33.0); MEAN CORPUSCULAR HGB CONC 32.2 g/dL (32.0-36.0); MEAN CORPUSCULAR VOLUME 95.8 fL (79-99); MONOCYTES # (AUTO) 0.9 K/uL (0.1-1.0); MONOCYTES % (AUTO) 7.8 % (3.0-13.0); NEUTROPHILS # (AUTO) 8.5 K/uL (1.8-7.7); NEUTROPHILS % (AUTO) 70.4 % (40.0-77.0); NUCLEATED RED BLOOD CELLS 0.4 % (0.0-0.19); PLATELET COUNT (AUTO) 172 K/uL (130-400); RED BLOOD CELL COUNT(AUTO) 2.88 MIL/uL (4.50-6.20); RED CELL DISTRIBUTION WIDTH 15.3 % (11.0-15.5)
[2024-06-03 04:21] LABS: ALBUMIN 2.1 g/dL (3.5-5.0); BILIRUBIN,TOTAL 0.7 mg/dL (0.2-1.0); CREATININE 1.1 mg/dL (0.5-1.3); POTASSIUM 3.8 mmol/L (3.5-5.1); TOTAL PROTEIN, SERUM 5.2 g/dL (6.0-8.3)
[2024-06-03] MEDS: cefTRIAXone 1G VIAL IVPB SCH (11:14)
[2024-06-03] MEDS ORDERED: LISINOPRIL 2.5 MG TABLET PO SCH (21:00)
[2024-06-04] MEDS ORDERED: carVEDIlol 3.125 MG TABLET PO SCH (09:00)
== END 2024-06-03 18:50 | DRG 215 ==
LOC: DAH 06:47 → DAHIP 06:48 → 2DH 16:30 → 2CV 05-25 12:29 → 2CH 05-30 07:40 → 2DH 06-01 10:13
PROVIDERS: ADMIT Internal Medicine; ATTEND Internal Medicine
PROC: 4A023N7 Measurement of Cardiac Sampling and Pressure, Left Heart, Percutaneous Approach (ICD-10-PCS; 2024-05-24)
PROC: B2111ZZ Fluoroscopy of Multiple Coronary Arteries using Low Osmolar Contrast (ICD-10-PCS; 2024-05-24)
PROC: 30233R1 Transfusion of Nonautologous Platelets into Peripheral Vein, Percutaneous Approach (ICD-10-PCS; 2024-05-24)
PROC: 5A02210 Assistance with Cardiac Output using Balloon Pump, Continuous (ICD-10-PCS; 2024-05-25)
PROC: 0PH000Z Insertion of Rigid Plate Internal Fixation Device into Sternum, Open Approach (ICD-10-PCS; 2024-05-25)
PROC: B24BZZ4 Ultrasonography of Heart with Aorta, Transesophageal (ICD-10-PCS; 2024-05-25)
PROC: 02100Z9 Bypass Coronary Artery, One Artery from Left Internal Mammary, Open Approach (ICD-10-PCS; principal; 2024-05-25 12:30)
PROC: 02HA3RZ Insertion of Short-term External Heart Assist System into Heart, Percutaneous Approach (ICD-10-PCS; 2024-05-25 12:30)
PROC: 5A0221D Assistance with Cardiac Output using Impeller Pump, Continuous (ICD-10-PCS; 2024-05-25 12:30)
PROC: 021109W Bypass Coronary Artery, Two Arteries from Aorta with Autologous Venous Tissue, Open Approach (ICD-10-PCS; 2024-05-25 12:30)
PROC: 06BQ4ZZ Excision of Left Saphenous Vein, Percutaneous Endoscopic Approach (ICD-10-PCS; 2024-05-25 12:30)
DX: I25.110 Atherosclerotic heart disease of native coronary artery with unstable angina pectoris (principal); R57.0 Cardiogenic shock; N17.9 Acute kidney failure, unspecified; R65.10 Systemic inflammatory response syndrome (SIRS) of non-infectious origin without acute organ dysfunction; K56.7 Ileus, unspecified; I47.19 Other supraventricular tachycardia; I49.3 Ventricular premature depolarization; J98.4 Other disorders of lung; Z20.822 Contact with and (suspected) exposure to COVID-19; I11.0 Hypertensive heart disease with heart failure; I50.9 Heart failure, unspecified; I25.5 Ischemic cardiomyopathy; E87.8 Other disorders of electrolyte and fluid balance, not elsewhere classified; E11.65 Type 2 diabetes mellitus with hyperglycemia; E78.5 Hyperlipidemia, unspecified; I25.82 Chronic total occlusion of coronary artery; D69.6 Thrombocytopenia, unspecified; E78.00 Pure hypercholesterolemia, unspecified; I48.0 Paroxysmal atrial fibrillation; E66.9 Obesity, unspecified; K31.89 Other diseases of stomach and duodenum; Z68.31 Body mass index [BMI] 31.0-31.9, adult; Z79.899 Other long term (current) drug therapy; Z79.4 Long term (current) use of insulin; I25.2 Old myocardial infarction; Z87.891 Personal history of nicotine dependence; Z82.49 Family history of ischemic heart disease and other diseases of the circulatory system
CPT/HCPCS: 36415; 36430; 36600; 71045; 74018; 74230; 76000; 80048; 80053; 80061; 81001; 82330; 82435; 82803; 82947; 82948; 83036; 83605; 83735; 83880; 84100; 84132; 84145; 84295; 84439; 84443; 85014; 85018; 85025; 85027; 85347; 85384; 85610; 85730; 86850; 86900; 86901; 86923; 87040; 87086; 87635; 87641; 87804; 92526; 92610; 92611; 93005; 93306; 93308; 93312; 93325; 93356; 93458; 93880; 94002; 94003; 94010; 94150; 94640; 94664; 96360; 96361; 99156; 99157; A4606; A7048; C1894; G0378; J0171; J0282; J0583; J0612; J0690; J0692; J0696; J1644; J1815; J1940; J2001; J2250; J2405; J2440; J2470; J2704; J2720; J2765; J3010; J3475; J3480; J3490; J7030; J7040; J7050; J7060; J7070; J7120; P9012; P9034; P9045; Q9967; A4213; A4215; A4216; A4221; A4222; A4223; A4315; A4452; A4510; A4600; A4649; A4663; A6204; A6219; C1713; C1776

== ENCOUNTER → 2024-08-16 | Outpatient (CLI) | payer OTHER ==
--- NOTE | 2024-08-17 07:41 | HMCSR ---
APPROVED REPORT EXAM: Two-dimensional and M-mode echocardiogram with Doppler and color Doppler. INDICATION ICD: I25.5 Ischemic cardiomyopathy Surgery/Intervention CABG: Date: May 2024 2D Dimensions RVDd3.9 cmLVEF(%)36.8 (>50%)LVED Vol(simp.)172.0 mL IVSd0.8 (0.7-1.1cm)FS(%)18 %LVES Vol(simp.)106.0 mL LVDd6.1 (3.8-5.6cm)LA (2D)4.7 (1.6-4.0cm)LVEF(%, simp.)38 % PWd0.8 (0.7-1.1cm)Ao Root(2D)3.3 (2.0-3.7cm)LA ESV INDEX (BP)51.74 mL/m2 LVDs5.0 (2.5-4.0cm)LVOT diam2.1 (1.8-2.4cm) IVC diam1.4 cm M-Mode Dimensions EPSS1.6 cm Aortic Valve AoV Vmax1.6 m/Evette Peak GR10.5 mmHgLVOT Vmax0.8 m/s AoV VTI0.3 mAo Mean GR6.2 mmHgLVOT VTI0.15 m JIMMY (VMAX)1.7 cm2Al P1/2T418 msAVA (VTI) 1.7 cm2 Mitral Valve MV E Vmax92.7 cm/sDECEL Iuld930 msMV Peak GR4 mmHg MV A Vmax30.5 cm/sP 1/2 T33 msMV Mean GR1 mmHg E/A ratio3.0MVA (PHT)6.6 cm2MR GXH523 cm2 MR Max PG77 mmHgMR Mean PG57 mmHg TDI E/E' Cwwnld74.0E/E' Zbzsjle29.1 Pulmonary Valve PV Vmax0.8 m/sPV VTI0.14 mPV Mean GR2 mmHg PV Peak GR2.4 mmHgPI End [place]. Speedy 1.4 cm/s Tricuspid Valve TR Vmax3.0 m/sRAP (EST) 3 ebAjWGVE85.6 mmHg TR Peak GR35.6 mmHg Left Ventricle The left ventricle is moderately dilated. Mid and distal anterior wall hypokinesis-moderate Severe mi d to distal anteroseptal hypokinesis Apical dyskinesis noted There is normal left ventricular wall th ickness. LVEF is 35%. Stage III diastolic dysfunction. Right Ventricle The right ventricle is normal size. Right ventricular systolic function is mildly to moderately reduc ed. Atria The left atrium is severely dilated. The right atrium size is normal. Aortic Valve Aortic valve is trileaflet. Aortic valve is mildly calcified but open well. Trace aortic regurgitatio n. Calculated aortic valve area is 1.7 cm2 with maximum pressure gradient of 10.5 mmHg and mean press ure gradient of 6.2 mmHg. Mitral Valve The mitral valve is mildly thickened. Mitral regurgitation is moderate to severe. There is no mitral valve stenosis. Tricuspid Valve The tricuspid valve leaflets appear normal. There is mild tricuspid regurgitation. Right ventricular systolic pressure is estimated at 30-40 mmHg. Pulmonic Valve The pulmonic valve leaflets are thin and pliable; valve motion is normal. There is mild valvular regu rgitation. Great Vessels The aortic root is normal in size. The IVC is normal in size and collapses >50% with inspiration. Pericardium No pericardial effusion. Conclusion LVEF is 35%. Stage III diastolic dysfunction. Mid and distal anterior wall hypokinesis-moderate Severe mid to distal anteroseptal hypokinesis Apical dyskinesis noted The left atrium is severely dilated. Calculated aortic valve area is 1.7 cm2 with maximum pressure gradient of 10.5 mmHg and mean pressure gradient of 6.2 mmHg. Mitral regurgitation is moderate to severe. There is mild tricuspid regurgitation. Right ventricular systolic pressure is estimated at 30-40 mmHg.
== END | disposition home or self-care (01) ==
LOC: SHCH 12:57
PROVIDERS: ATTEND Internal Medicine Cardiovascular Disease
DX: I08.8 Other rheumatic multiple valve diseases (principal); Z95.1 Presence of aortocoronary bypass graft; I25.5 Ischemic cardiomyopathy
CPT/HCPCS: 93306